=== PATIENT | male | born 1955 | race Caucasian/White ===

== ENCOUNTER 2024-04-13 11:32 | Day surgery (SDC) | payer OTHER ==
[2024-04-07 13:43] VITALS: BMI 24.3
[2024-04-13] MEDS ORDERED: ONDANSETRON 4 MG/2 ML VIAL ONE (13:07)
[2024-04-13 13:45] VITALS: RESP 18; TEMP 98
[2024-04-13 13:49] VITALS: BP 109/63; PULSE 85
== END 2024-04-13 14:05 | disposition home or self-care (01) ==
LOC: FASU-ENDO 11:32
PROVIDERS: ATTEND Internal Medicine Gastroenterology
PROC: 0DJD8ZZ Inspection of Lower Intestinal Tract, Via Natural or Artificial Opening Endoscopic (ICD-10-PCS; principal; 2024-04-13 13:10)
DX: Z12.11 Encounter for screening for malignant neoplasm of colon (principal); K57.30 Diverticulosis of large intestine without perforation or abscess without bleeding; K64.1 Second degree hemorrhoids